=== PATIENT | female | born 2000 | race Hispanic/Latino ===

== ENCOUNTER 2021-08-05 14:59 | Emergency (ER) | payer OTHER ==
[~2021-08-05] VITALS: Ht 165.1 cm; Wt 61.2 kg
[2021-08-05] MEDS ORDERED: LIDOCAINE HCL 2% LOCAL 20 ML VIAL ONE (15:29)
[2021-08-05] MEDS ORDERED: DEXAMETHASONE SOD PHOS 10 MG/1 ML VIAL IM ONE (15:30)
[2021-08-05] MEDS ORDERED: CEFTRIAXONE 1 GM VIAL IM ONE (15:30)
[2021-08-05] MEDS ORDERED: DEXAMETHASONE SOD PHOS INJ 4 MG/ML SDV ONE (15:30)
[2021-08-05] MEDS ORDERED: DEXAMETHASONE SOD PHOS INJ 4 MG/ML SDV IM ONE (15:30)
[2021-08-05] MEDS ORDERED: CEFDINIR300 MG PO (15:57)
== END 2021-08-05 16:13 | disposition home or self-care (01) ==
LOC: FSED 15:18
DX: J02.9 Acute pharyngitis, unspecified (principal)
CPT/HCPCS: 83518; 99283; J0696; J1100; J2001

== ENCOUNTER 2021-10-31 17:29 | Emergency (ER) | payer OTHER ==
[~2021-10-31] VITALS: Ht 157.5 cm; Wt 64.4 kg
[~2021-10-31 17:29] MED LIST: CEFDINIR300 MG PO
[2021-10-31] MEDS ORDERED: ACETAMINOPHEN 325 MG TAB PO STA (17:56)
[2021-10-31] MEDS ORDERED: ACETAMINOPHEN 325 MG TAB ONE (18:18)
== END 2021-10-31 18:39 | disposition home or self-care (01) ==
LOC: FSED 17:33
DX: R05.9 Cough, unspecified (principal); J06.9 Acute upper respiratory infection, unspecified
CPT/HCPCS: 83518; 87400; 99282